=== PATIENT | male | born 1980 | race African-American/Black ===

== ENCOUNTER 2021-03-13 11:25 | Emergency (ER) | payer MEDICAID ==
--- NOTE | 2021-03-13 11:31 | NUR ---
not in waiting room when called.
--- NOTE | 2021-03-13 11:34 | NUR ---
Left ER before triage or MSE
== END 2021-03-13 11:31 | disposition left against medical advice (07) ==
LOC: ER 11:25
DX: Z53.21 Procedure and treatment not carried out due to patient leaving prior to being seen by health care provider (principal)

== ENCOUNTER 2021-03-13 12:23 | Emergency (ER) | payer MEDICAID ==
[~2021-03-13] VITALS: Ht 175.3 cm; Wt 72.6 kg
--- NOTE | 2021-03-13 13:06 | NUR ---
[email or web address], medical screening exam in progress
--- NOTE | 2021-03-13 13:16 | NUR ---
Patient was seen sleeping on gurney, easily arousable, respiration:easy, NAD. Urine cup provided.
[2021-03-13 13:26] LABS: HEMATOCRIT 42.4 % (36.7-47.1); MEAN CORPUSCULAR HEMOGLOBIN 26.8 uug (23.8-33.4); MEAN CORPUSCULAR VOLUME 82.8 fL (73.0-96.2); PLATELET COUNT (AUTO) 346 K/uL (152-348)
[2021-03-13 13:33] LABS: CARBON DIOXIDE 25 mmol/L (21-32); CHLORIDE 107 mmol/L (98-107); GLUCOSE 92 mg/dL (74-106); UREA NITROGEN, BLOOD 16 mg/dL (7-18)
[2021-03-13 13:35] LABS: ETHANOL < 3 MG/DL (0-0)
[2021-03-13 13:39] LABS: ALANINE AMINOTRANSFERASE 20 U/L (16-63); ALKALINE PHOSPHATASE 82 U/L (50-136); ASPARTATE AMINOTRANSFERASE 28 U/L (15-37); BILIRUBIN,DIRECT 0.1 mg/dL (0.0-0.2); BILIRUBIN,TOTAL 0.5 mg/dL (0.2-1.0); TOTAL PROTEIN, SERUM 7.1 g/dL (6.4-8.2)
[2021-03-13 13:42] LABS: ACETAMINOPHEN < 2.0 ug/mL (10-30)
--- NOTE | 2021-03-13 14:40 | NUR ---
Patient is sleeping, calm & cooperative when awake, still for urine sample.
--- NOTE | 2021-03-13 15:23 | NUR ---
Patient is medically cleared by Dr Baez.
--- NOTE | 2021-03-13 15:33 | NUR ---
Patient ambulated to bathroom with brisk setady gait. Urine sample was requested again.
--- NOTE | 2021-03-13 15:41 | NUR ---
Patient said that he forgot to collect the urine sample immediately after using the bathroom. MD is aware. Patient was updated re: his plan of care (e.g. pending urine sample , psych evaluation, dinner tray was ordered earlier.)
--- NOTE | 2021-03-13 16:31 | NUR ---
Psych social foot worker Leda is now here.
--- NOTE | 2021-03-13 16:37 | NUR ---
Nelda, our [facility] tar worker is now here to evaluate the patient. Addendum: 03/13/21 at 1649 by BRAD Nelda, our psych tar worker is now here to evaluate the patient.
--- NOTE | 2021-03-13 16:46 | NUR ---
Alex, our social media intern is also here to evaluate the patient.
--- NOTE | 2021-03-13 16:57 | NUR ---
Patient is eating sandwich with bottled iced water with good appetite. Dinner tray was ordered earlier & follow-up calls were done@1613 and 1656.
--- NOTE | 2021-03-13 17:19 | NUR ---
Key Account Executive consultation: Key Account Executive consultation requested for Anxiety. Patient is a 40 year old -[place] male. Patient was asleep when this DEMAND GENERATOR MANAGER approached him, however easily arousable. Patient is receptive to meeting with this DEMAND GENERATOR MANAGER. Patient reports moving to [place] from [place] about 3 months ago, for work. Patient stated he recently took 3 weeks off from work "so I could kick my drug problem". Patient reported having multiple stressors, but did not want to elaborate. Patient stated that his drug use has increased due to these stressors. Patient reports using both cocaine and meth, stated that he has been using cocaine for 1 year, and meth for a few months, and uses them both on average 3 times per week. Patient stated his last use of meth was yesterday morning, and his last use of cocaine was last night. Patient reports long standing history of Depression and Anxiety, however does not take medications for them, and prefers to self-medicate with drugs. Patient stated he lost his car 2 nights ago, along with all his personal belongings which were in his car. Patient was living in an apartment, but stated he was scammed by the landlord and therefore had been living in his car. Patient reports SI, stating he would probably overdose. Patient denies HI at this time. Patient reports hx of psychiatric hospitalizations when he was living in [place]. This DEMAND GENERATOR MANAGER offered the option of voluntary psychiatric hospitalization, and patient expressed agreement. This DEMAND GENERATOR MANAGER to refer patient to [facility] for inpatient psychiatric hospitalization. SEVERINO Macias and Dr. Baez informed of above.
[2021-03-13 17:20] LABS: *BILIRUBIN,URIN NEGATIVE (NEGATIVE); *CLARITY,URINE CLEAR (CLEAR); *COLOR,URINE YELLOW (YELLOW); *KETONES,URINE NEGATIVE (NEGATIVE); LEUKOCYTE ESTERASE ,URINE NEGATIVE (NEGATIVE); NITRITE, URINE NEGATIVE (NEGATIVE); PH,URINE 6.5 (5.0-8.0); UGLUCOSE NEGATIVE (NEGATIVE)
[2021-03-13 17:24] LABS: *BLOOD, URINE TRACE LYSED (NEGATIVE)
--- NOTE | 2021-03-13 17:24 | NUR ---
Patient said that he can not wait for the dinner tray. Patient also said "I have money and I'm gonna buy outside."
--- NOTE | 2021-03-13 17:26 | NUR ---
This STUDENT ASSISTANT faxed patient's clinicals to [facility]umper Juan Luis at [facility]. This STUDENT ASSISTANT informed RN Colleen, and asked her to fax patient's COVID test results, once received. fax # [phone] Once patient is accepted to [facility], patient will be transported by ambulance.
[2021-03-13 17:29] LABS: *AMPHETAMINE, URINE POSITIVE (NEGATIVE); *CANNABINOID, URINE POSITIVE (NEGATIVE); *COCCAINE, URINE POSITIVE (NEGATIVE); *OPIATE, URINE NEGATIVE (NEGATIVE); *PHENCYCLIDINE SCREEN,URINE NEGATIVE (NEGATIVE)
--- NOTE | 2021-03-13 17:32 | NUR ---
Patient is not in the room. MD notified. property clerk Sabrina notified. blow off worker Alex notified.
--- NOTE | 2021-03-13 17:34 | NUR ---
This ADDICTIONS RECOVERY SPECIALIST informed by SEVERINO Macias that patient eloped from the ED. no further SS interventions needed at this time.
[2021-03-13 17:36] LABS: BACTERIA,URINE NONE SEEN /HPF (NONE SEEN); RBC,URINE 0-3 /HPF (0-3); SQUAMOUS EPITHELIAL CELL,UR NONE SEEN /HPF (NONE SEEN); WBC,URINE 0-3 /HPF (0-3)
== END 2021-03-13 17:34 | disposition left against medical advice (07) ==
LOC: ER 12:24
DX: F19.10 Other psychoactive substance abuse, uncomplicated (principal); Z59.0 Homelessness; Z91.14 Patient's other noncompliance with medication regimen; R45.851 Suicidal ideations
CPT/HCPCS: 36415; 85025; A4663; G0480

== ENCOUNTER 2021-03-13 18:27 | Emergency (ER) | payer SELFPAY ==
--- NOTE | 2021-03-13 18:44 | NUR ---
not in waiting room when called for triage.
--- NOTE | 2021-03-13 19:20 | NUR ---
PATIENT LEFT WITHOUT BEING TRAIGED OR SEEN BY ERMD
== END 2021-03-13 19:30 | disposition left against medical advice (07) ==
LOC: ER 18:28
DX: Z53.21 Procedure and treatment not carried out due to patient leaving prior to being seen by health care provider (principal)

== ENCOUNTER 2021-05-03 07:06 | Emergency (ER) | payer MEDICAID ==
[~2021-05-03] VITALS: Ht 175.3 cm; Wt 72.6 kg
[2021-05-03] MEDS ORDERED: KETOROLAC TROMETHAMINE 15 MG INJ IM ONE (08:00)
[2021-05-03] MEDS ORDERED: KETOROLAC TROMETHAMINE 15 MG INJ ONE (08:02)
[2021-05-03] MEDS ORDERED: CHLO473M5 MM (08:11)
[2021-05-03 08:30] VITALS: BP 126/82
--- NOTE | 2021-05-03 08:30 | NUR ---
Patient discharged to home in stable condition. Written and verbal after care instructions given. Patient verbalizes understanding of instructions. Stressed follow up or return to ER for worsening s/s. Patient ambulates with steady gait, V/S stable, left with paper Rx, and left with all personal belongings.
== END 2021-05-03 08:30 | disposition home or self-care (01) ==
LOC: ER 07:14
DX: K08.89 Other specified disorders of teeth and supporting structures (principal); F15.90 Other stimulant use, unspecified, uncomplicated; F41.9 Anxiety disorder, unspecified; Z59.0 Homelessness
CPT/HCPCS: 96372; 99283; J1885; A4663